=== PATIENT | female | born 1965 | race Caucasian/White ===

== ENCOUNTER 2019-02-17 16:19 | Inpatient (IN) | payer MEDICAID ==
[2019-02-17] MEDS ORDERED: Sodium Chloride 0.9% 10 ML Syringe FLUSH PRN (17:57)
[2019-02-17] MEDS ORDERED: Sodium Chloride 0.9% 10 ML SDV IV PRN (17:57)
[2019-02-17] MEDS ORDERED: Ondansetron 4 MG Tab.DIS PO PRN (17:57)
[2019-02-17] MEDS ORDERED: Sodium Chloride 0.9% 2.5 ML Syringe FLUSH PRN (17:57)
[2019-02-17] MEDS ORDERED: Temazepam 15 MG Cap PO PRN (17:57)
[2019-02-17] MEDS ORDERED: Docusate Sodium 100 MG Cap PO PRN (17:57)
--- NOTE | 2019-02-17 18:04 | PCM.HP ---
H&P History of Present Illness - General Date of Service: 02/17/19 Admit Problem/Dx: Admission Diagnosis/Problem Admission Diagnosis/Problem Pneumonia multilobular Source of Information: Patient, Family History Limitations: Reports: No Limitations - History of Present Illness Initial Comments - Free Text/Narative: The patient is a 53-year-old lady who was directly admitted from her primary care physician's office secondary to pneumonia. The patient's pneumonia is complicated by having myelodysplastic syndrome and on lenalidomide. The patient reports that she has had fever and chills associated with this. The patient says that she has been having a cough and has had some blood streaking along with greenish colored sputum. Patient has been trying [id number] medications without relief. The patient has denied any chest pain. She has had back pain. The patient does not have any radiation of her pain. She has no specific aggravating or relieving factors. The patient does have a history of family members at home sick. No recent travel. Onset of Symptoms: Reports: Gradual Duration of Symptoms: Reports: Day(s): Location: Reports: Chest Quality: Reports: Ache Improves with: Reports: Rest Worsens with: Reports: Breathing, Movement Context: Reports: Sick Contact. Denies: Trauma, Travel Associated Symptoms: Reports: Fever/Chills Headache Pain Score (Numeric/FACES): 8 - Related Data Allergies/Adverse Reactions: Allergies Allergy/AdvReac Type Severity Reaction Status Date / Time No Known Allergies Allergy Verified 02/17/19 17:42 Past Medical History HEENT History: Reports: None Cardiovascular History: Reports: None Respiratory History: Reports: None Gastrointestinal History: Reports: None Genitourinary History: Reports: None [employer] WORK[employer] History: Reports: , Other (See Below) Other OB/BYN History: Hx of Uterus Ca, Hysterectomy Musculoskeletal History: Reports: None Neurological History: Reports: Migraines Psychiatric History: Reports: Depression Endocrine/Metabolic History: Reports: None Other Hematologic History: Myelodysplastic Syndrome Immunologic History: Reports: None Oncologic (Cancer) History: Reports: Uterine, Other (See Below) ( Myelodysplastic syndrome) Dermatologic History: Reports: None - Infectious Disease History Infectious Disease History: Reports: Chicken Pox, Measles, Mumps - Past Surgical History HEENT Surgical History: Reports: Oral Surgery Other HEENT Surgeries/Procedures: wears upper & lower dentures Other GI Surgeries/Procedures: Hx of Gastric Bypass Other Oncologic Surgeries/Procedures: Hysterectomy Social & Family History - Family History Family Medical History: Noncontributory - Tobacco Use Smoking Status *Q: Never Smoker Second Hand Smoke Exposure: No - Caffeine Use Caffeine Use: Reports: Soda, Tea - Recreational Drug Use Recreational Drug Use: No - Living Situation & Occupation Living situation: Reports: Single, with Family Occupation: Unemployed H&P Review of Systems - Review of Systems: Review Of Systems: See Below General: Reports: Fever, Chills, Weakness HEENT: Reports: No Symptoms Pulmonary: Reports: Shortness of Breath, Wheezing, Cough, Sputum Cardiovascular: Reports: No Symptoms Gastrointestinal: Reports: Nausea Genitourinary: Reports: No Symptoms Musculoskeletal: Reports: Back Pain Skin: Reports: No Symptoms Psychiatric: Reports: No Symptoms Neurological: Reports: No Symptoms Hematologic/Lymphatic: Reports: No Symptoms Immunologic: Reports: No Symptoms Exam - Exam Exam: See Below - Vital Signs Vital Signs: Last Vital Signs Temp 36.8 C 02/17/19 16:50 Pulse 100 02/17/19 16:50 Resp 18 02/17/19 16:50 BP 129/73 02/17/19 16:50 Pulse Ox 94 L 02/17/19 16:50 Weight: 92.533 kg - Exam Quality Assessment: No: Supplemental Oxygen General: Alert, Oriented, Cooperative HEENT: Conjunctiva Clear, EACs Clear, EOMI, Hearing Intact, Mucosa Moist & [place] , Nares Patent, PERRLA Neck: Supple, Trachea Midline. No: Carotid Bruit Lungs: Decreased Breath Sounds, Crackles, Rales Cardiovascular: Regular Rate, Regular Rhythm GI/Abdominal Exam: Normal Bowel Sounds, Soft, Non-Tender, No Organomegaly, No Distention (Female) Exam: Deferred Rectal (Female) Exam: Deferred Back Exam: Normal Inspection, Full Range of Motion, NT Extremities: Normal Inspection, Normal Range of Motion, Non-Tender, No Pedal Edema Skin: Warm, Dry, Intact Neurological: Cranial Nerves Intact Neuro Extensive - Mental Status: Alert, Oriented x3 Neuro Extensive - Motor, Sensory, Reflexes: CN II-XII Intact, Normal Gait Psychiatric: Alert, Normal Affect, Normal Mood - Patient Data Result Diagrams: 02/18/19 05:07 02/18/19 05:07 - Problem List (1) Pneumonia SNOMED Code(s): 068384116 ICD Code: J18.9 - PNEUMONIA, UNSPECIFIED ORGANISM Status: Acute Priority : High Current Visit: Yes Qualifiers: Pneumonia type: due to unspecified organism Laterality: bilateral Lung location: unspecified part of lung Qualified Code(s): J18.9 - Pneumonia, unspecified organism (2) Hemoptysis SNOMED Code(s): 84806026 ICD Code: R04.2 - HEMOPTYSIS Status: Acute Priority: High Current Visit : Yes (3) Myelodysplastic disease, not classified SNOMED Code(s): 156813614 ICD Code: C94.6 - MYELODYSPLASTIC DISEASE, NOT CLASSIFIED Status: Chronic Priority: High Current Visit: Yes (4) MGUS (monoclonal gammopathy of unknown significance) SNOMED Code(s): 333644820 ICD Code: D47.2 - MONOCLONAL GAMMOPATHY Status: Chronic Priority: High Current Visit: Yes (5) Obesity (BMI 30.0-34.9) SNOMED Code(s): 877347611017755 ICD Code: E66.9 - OBESITY, UNSPECIFIED Status: Chronic Priority: Medium Current Visit: Yes Problem List Initiated/Reviewed/Updated: Yes Orders Last 24hrs: Active Orders 24 hr Category Date Time Status Patient Status [ADT] Routine ADT 02/17/19 17:57 Ordered Oxygen Therapy [RC] PRN Care 02/17/19 17:57 Ordered Up ad Candy [RC] ASDIRECTED Care 02/17/19 17:57 Ordered VTE/DVT Education [RC] PER UNIT ROUTINE Care 02/17/19 17:57 Ordered Vital Signs [RC] Q4H Care 02/17/19 17:57 Ordered Regular Diet [DIET] Diet 02/17/19 Breakfast Ordered Chest 1V Frontal [CR] AM Exams 02/18/19 05:11 Ordered CBC WITH AUTO DIFF [HEME] AM Lab 02/18/19 05:11 Ordered COMPREHENSIVE METABOLIC PN,CMP [CHEM] AM Lab 02/18/19 05:11 Ordered CULTURE SPUTUM + SMEAR [RM] Stat Lab 02/17/19 17:57 Ordered Acetaminophen [Tylenol] Med 02/17/19 17:57 Ordered 650 mg PO Q4H PRN Docusate Sodium [Colace] Med 02/17/19 17:57 Ordered 100 mg PO BID PRN Enoxaparin [Lovenox] Med 02/17/19 18:00 Ordered 30 mg SUBCUT Q24H Meropenem [Merrem] 2 gm Med 02/17/19 18:00 Ordered Sodium Chloride 0.9% [Normal Saline] 100 ml IV Q8H Ondansetron [Zofran ODT] Med 02/17/19 17:57 Ordered 4 mg PO Q6H PRN Sodium Chloride 0.9% [Normal Saline] Med 02/17/19 17:57 Ordered 10 ml IV ASDIRECTED PRN Sodium Chloride 0.9% [Normal Saline] 1,000 ml Med 02/17/19 18:00 Ordered IV ASDIRECTED Sodium Chloride 0.9% [Saline Flush] Med 02/17/19 17:57 Ordered 10 ml FLUSH ASDIRECTED PRN Sodium Chloride 0.9% [Saline Flush] Med 02/17/19 17:57 Ordered 2.5 ml FLUSH ASDIRECTED PRN Temazepam [Restoril] Med 02/17/19 17:57 Ordered 15 mg PO BEDTIME PRN oxyCODONE Med 02/17/19 17:57 Ordered 5 mg PO Q4H PRN Peripheral IV Insertion Adult [OM.PC] Routine Oth 02/17/19 17:57 Ordered Resuscitation Status Routine Resus Stat 02/17/19 17:57 Ordered Medication Orders Acetaminophen (Tylenol) 650 mg PO Q4H PRN PRN Reason: Pain (Mild 1-3)/fever Docusate Sodium (Colace) 100 mg PO BID PRN PRN Reason: Constipation Enoxaparin Sodium (Lovenox) 30 mg SUBCUT Q24H [facility] Meropenem 2 gm/ Sodium (Chloride) 100 mls @ 100 mls/hr IV Q8H [facility] Sodium Chloride (Normal Saline) 1,000 mls @ 100 mls/hr IV ASDIRECTED [facility] Ondansetron HCl (Zofran Odt) 4 mg PO Q6H PRN PRN Reason: nausea, able to take PO Oxycodone HCl (Oxycodone) 5 mg PO Q4H PRN PRN Reason: Pain (moderate 4-6) Sodium Chloride (Saline Flush) 10 ml FLUSH ASDIRECTED PRN PRN Reason: Keep Vein Open Sodium Chloride (Saline Flush) 2.5 ml FLUSH ASDIRECTED PRN PRN Reason: Keep Vein Open Sodium Chloride (Normal Saline) 10 ml IV ASDIRECTED PRN PRN Reason: IV Use Temazepam (Restoril) 15 mg PO BEDTIME PRN PRN Reason: Sleep Assessment/Plan Comment:: The patient is a 53-year-old lady who had been admitted as an inpatient secondary to the severity of her pneumonia and her immunocompromise status. The patient has myelodysplastic dysplastic syndrome along with MGUS and she is under medications for this. The patient says that the lenalidomide hasn't been used in several weeks and she is following with our local cancer [facility]. The patient will require close monitoring with vital signs every 4 hours. The patient will also have IV antibiotics started and she has been placed on meropenem 2 g every 8 hours. IV fluids of normal saline at 125 mL per hour have also been started. Antibiotics will be descalated after sputum cultures and sensitivities are obtained. Patient has had a mild hemoptysis that I think is related directly to her pneumonia and she'll be kept on DVT prophylaxis with the use of Lovenox at 30 mg subcutaneous daily secondary to her decrease in EGFR. The patient has been encouraged to ambulate. A repeat chest x-ray has been ordered. Laboratory studies have been reordered for the patient. The patient will also have a regular diet as tolerated. Discharge possible in 2-3 days.
[2019-02-17] MEDS: oxyCODONE 5 MG Tab PO PRN (18:41)
[2019-02-17] MEDS: Sodium Chloride 0.9% 1,000 ML IV SCH (18:42)
[2019-02-17] MEDS: Enoxaparin 30 MG/0.3 ML Syringe SUBCUT SCH (18:45)
[2019-02-17] MEDS: Meropenem 2 GM in Sodium Chloride 0.9% 100 ML IV SCH (19:42)
[2019-02-18] MEDS: Sodium Chloride 0.9% 1,000 ML IV SCH (03:40)
[2019-02-18] MEDS: Meropenem 2 GM in Sodium Chloride 0.9% 100 ML IV SCH ×3 (03:40→18:11)
--- NOTE | 2019-02-18 07:18 | PCM.PN ---
- General Info Date of Service: 02/18/19 Admission Dx/Problem (Free Text): Admission Diagnosis/Problem Admission Diagnosis/Problem Pneumonia multilobular Subjective Update: The patient is a 53-year-old lady who was admitted directly from her primary care physician with pneumonia. The patient was aggressively started on IV fluids and antibiotics secondary to her myelodysplastic syndrome. The patient is improving today. She has not been requiring oxygen. She has denied any fever or chills. Overall, the patient says that she is doing somewhat better. No episodes of hemoptysis. Functional Status: Reports: Pain Controlled - Review of Systems General: Reports: No Symptoms HEENT: Reports: No Symptoms Pulmonary: Reports: Shortness of Breath, Cough. Denies: Sputum, Hemoptysis Cardiovascular: Reports: No Symptoms Gastrointestinal: Reports: No Symptoms Genitourinary: Reports: No Symptoms Musculoskeletal: Reports: No Symptoms Skin: Reports: No Symptoms Neurological: Reports: No Symptoms Psychiatric: Reports: No Symptoms - Patient Data Vitals - Most Recent: Last Vital Signs Temp 36.7 C 02/18/19 03:41 Pulse 76 02/18/19 03:41 Resp 15 02/18/19 03:41 BP 117/69 02/18/19 03:41 Pulse Ox 94 L 02/18/19 03:41 Weight - Most Recent: 92.533 kg I&O - Last 24 Hours: Intake & Output 02/17/19 02/18/19 02/18/19 22:59 06:59 14:59 Intake Total 200 Output Total 700 Balance -500 Lab Results Last 24 Hours: Laboratory Results - last 24 hr 02/18/19 02/18/19 02/18/19 Range/Units 05:07 05:07 05:07 WBC 7.82 (4.0-11.0) K/uL RBC 2.61 L (4.30-5.90) M/uL Hgb 8.7 L (12.0-16.0) g/dL Hct 26.2 L (36.0-46.0) % MCV 100.4 H (80.0-98.0) fL MCH 33.3 H (27.0-32.0) pg MCHC 33.2 (31.0-37.0) g/dL RDW Std Deviation 52.4 (28.0-62.0) fl RDW Coeff of Garrick 15 (11.0-15.0) % Plt Count 426 H (150-400) K/uL MPV 10.00 (7.40-12.00) fL Add Manual Diff YES Neutrophils % (Manual) 58 (48.0-80.0) % Band Neutrophils % 6 % Lymphocytes % (Manual) 32 (16.0-40.0) % Monocytes % (Manual) 7 (0.0-15.0) % Eosinophils % (Manual) 1 (0.0-7.0) % Basophils % (Manual) 1 (0.0-1.5) % Absolute Seg Neuts 4.5 (1.4-5.7) Band Neutrophils # 0.5 Lymphocytes # (Manual) 2.5 H (0.6-2.4) Monocytes # (Manual) 0.5 (0.0-0.8) Eosinophils # (Manual) 0.1 (0.0-0.7) Basophils # (Manual) 0.1 (0.0-0.1) Sodium 142 (136-145) mmol/L Potassium 2.7 L (3.5-5.1) mmol/L Chloride 105 (98-107) mmol/L Carbon Dioxide 28.4 (21.0-32.0) mmol/L BUN 5 L (7.0-18.0) mg/dL Creatinine 1.1 H (0.6-1.0) mg/dL Est Cr Clr Drug Dosing 58.29 mL/min Estimated GFR (MDRD) 51.6 ml/min Glucose 94 (74-106) mg/dL Calcium 7.8 L (8.5-10.1) mg/dL Magnesium 2.0 (1.8-2.4) mg/dL Total Bilirubin 0.3 (0.2-1.0) mg/dL AST 9 L (15-37) IU/L ALT 10 L (14-63) IU/L Alkaline Phosphatase 121 H (46-116) U/L Total Protein 6.3 L (6.4-8.2) g/dL Albumin 1.7 L (3.4-5.0) g/dL Globulin 4.6 H (2.6-4.0) g/dL Albumin/Globulin Ratio 0.4 L (0.9-1.6) Med Orders - Current: Current Medications Acetaminophen (Tylenol) 650 mg PO Q4H PRN PRN Reason: Pain (Mild 1-3)/fever Docusate Sodium (Colace) 100 mg PO BID PRN PRN Reason: Constipation Enoxaparin Sodium (Lovenox) 30 mg SUBCUT Q24H [facility] Last Admin: 02/17/19 18:45 Dose: 30 mg Meropenem 2 gm/ Sodium (Chloride) 100 mls @ 100 mls/hr IV Q8H [facility] Last Admin: 02/18/19 03:40 Dose: 100 mls/hr Sodium Chloride (Normal Saline) 1,000 mls @ 100 mls/hr IV ASDIRECTED [facility] Last Admin: 02/18/19 03:40 Dose: 100 mls/hr Potassium Chloride/Dextrose/Sod Cl (D5 1/2 Ns W/ 40 Meq/L Kcl) 1,000 mls @ 100 mls/hr IV ASDIRECTED [facility] Ondansetron HCl (Zofran Odt) 4 mg PO Q6H PRN PRN Reason: nausea, able to take PO Oxycodone HCl (Oxycodone) 5 mg PO Q4H PRN PRN Reason: Pain (moderate 4-6) Last Admin: 02/17/19 18:41 Dose: 5 mg Sodium Chloride (Saline Flush) 10 ml FLUSH ASDIRECTED PRN PRN Reason: Keep Vein Open Sodium Chloride (Saline Flush) 2.5 ml FLUSH ASDIRECTED PRN PRN Reason: Keep Vein Open Sodium Chloride (Normal Saline) 10 ml IV ASDIRECTED PRN PRN Reason: IV Use Temazepam (Restoril) 15 mg PO BEDTIME PRN PRN Reason: Sleep - Exam Quality Assessment: No: Supplemental Oxygen General: Alert, Oriented, Cooperative, No Acute Distress HEENT: Pupils Equal, Pupils Reactive, EOMI, Mucous Membr. Moist/[place] Neck: Supple, Trachea Midline, No Thyromegaly Lungs: Decreased Breath Sounds, Crackles (Widely scattered) Cardiovascular: Regular Rate, Regular Rhythm GI/Abdominal Exam: Normal Bowel Sounds, Soft, No Distention. No: Guarding, Rigid, Rebound (Female) Exam: Deferred Back Exam: Normal Inspection, Full Range of Motion Extremities: Normal Inspection, No Pedal Edema Skin: Warm, Dry, Intact Neurological: No New Focal Deficit Psy/Mental Status: Alert, Normal Affect, Normal Mood - Problem List & Annotations (1) Pneumonia SNOMED Code(s): 366683606 Code(s): J18.9 - PNEUMONIA, UNSPECIFIED ORGANISM Status: Acute Priority: High Current Visit: Yes Qualifiers: Pneumonia type: due to unspecified organism Laterality: bilateral Lung location: unspecified part of lung Qualified Code(s): J18.9 - Pneumonia, unspecified organism (2) Hemoptysis SNOMED Code(s): 07954204 Code(s): R04.2 - HEMOPTYSIS Status: Resolved Priority: High Current Visit: Yes (3) Myelodysplastic disease, not classified SNOMED Code(s): 906193316 Code(s): C94.6 - MYELODYSPLASTIC DISEASE, NOT CLASSIFIED Status: Chronic Priority: High Current Visit: Yes (4) MGUS (monoclonal gammopathy of unknown significance) SNOMED Code(s): 988552526 Code(s): D47.2 - MONOCLONAL GAMMOPATHY Status: Chronic Priority: High Current Visit: Yes (5) Obesity (BMI 30.0-34.9) SNOMED Code(s): 461906633660851 Code(s): E66.9 - OBESITY, UNSPECIFIED Status: Chronic Priority: Medium Current Visit: Yes - Problem List Review Problem List Initiated/Reviewed/Updated: Yes - My Orders Last 24 Hours: My Active Orders 02/17/19 17:57 Patient Status [ADT] Routine Oxygen Therapy [RC] PRN Up ad Candy [RC] ASDIRECTED VTE/DVT Education [RC] PER UNIT ROUTINE Vital Signs [RC] Q4H CULTURE SPUTUM + SMEAR [RM] Stat Acetaminophen [Tylenol] 650 mg PO Q4H PRN Docusate Sodium [Colace] 100 mg PO BID PRN Ondansetron [Zofran ODT] 4 mg PO Q6H PRN Sodium Chloride 0.9% [Normal Saline] 10 ml IV ASDIRECTED PRN Sodium Chloride 0.9% [Saline Flush] 10 ml FLUSH ASDIRECTED PRN Sodium Chloride 0.9% [Saline Flush] 2.5 ml FLUSH ASDIRECTED PRN Temazepam [Restoril] 15 mg PO BEDTIME PRN oxyCODONE 5 mg PO Q4H PRN Peripheral IV Insertion Adult [OM.PC] Routine Resuscitation Status Routine 02/17/19 18:00 Enoxaparin [Lovenox] 30 mg SUBCUT Q24H Sodium Chloride 0.9% [Normal Saline] 1,000 ml IV ASDIRECTED 02/17/19 19:00 Meropenem [Merrem] 2 gm Sodium Chloride 0.9% [Normal Saline] 100 ml IV Q8H 02/17/19 Breakfast Regular Diet [DIET] 02/18/19 05:11 Chest 1V Frontal [CR] AM 02/18/19 07:00 D5 1/2 NS w/ 40 mEq/L KCl 1,000 ml IV ASDIRECTED - Plan Plan:: The patient is a 53-year-old lady who had been admitted as an inpatient secondary to the severity of her pneumonia and her immunocompromise status. The patient has myelodysplastic dysplastic syndrome along with MGUS and she is under medications for this. The patient says that the lenalidomide hasn't been used in several weeks and she is following with our local cancer Center. The patient will require close monitoring with vital signs every 4 hours. The patient will also have IV antibiotics started and she has been placed on meropenem 2 g every 8 hours. IV fluids of normal saline at 125 mL per hour have also been started. Antibiotics will be descalated after sputum cultures and sensitivities are obtained. Patient has had a mild hemoptysis that I think is related directly to her pneumonia and she'll be kept on DVT prophylaxis with the use of Lovenox at 30 mg subcutaneous daily secondary to her decrease in EGFR. The patient has been encouraged to ambulate. A repeat chest x-ray has been ordered. Laboratory studies have been reordered for the patient. The patient will also have a regular diet as tolerated. Discharge possible in 2-3 days. The patient is a 53-year-old lady who is doing much better today after IV fluids and antibiotics. Because the patient is immune compromised that she will be kept on meropenem 2 g IV every 8 hours. The patient also be kept on IV normal saline 125 mL per hour. Culture and sensitivities and sputum are still pending. Repeat laboratory testings have been ordered secondary to the patient' s depressed EGFR. The patient also has been encouraged to ambulate. The patient will also be kept on her regular diet as tolerated. She should be appropriate for discharge in 1-2 days.
[2019-02-18] MEDS: D5 1/2 NS w/ 40 mEq/L KCl 1,000 ML IV SCH ×2 (08:29→22:40)
--- NOTE | 2019-02-18 09:35 | CR ---
INDICATION: Followup pneumonia. TECHNIQUE: Single view of the chest. COMPARISON: 02/17/2019. FINDINGS: The heart and mediastinum are unchanged. Shallow inspiration. There are patchy infiltrates in the right upper lobe and left lung base which have not changed significantly from 1 day previously. No significant pleural effusions. No pneumothorax. IMPRESSION: Patchy infiltrates in the right upper lobe and left lung base unchanged from 1 day previously. Dictated by Jewel Benavides MD @ Feb 18 2019 9:31AM Signed by Dr. Jewel Benavides @ Feb 18 2019 9:33AM
[2019-02-18] MEDS: oxyCODONE 5 MG Tab PO PRN ×2 (10:55→15:51)
[2019-02-18] MEDS ORDERED: Cyclobenzaprine 10 MG Tab PO PRN (16:52)
[2019-02-18] MEDS: Enoxaparin 30 MG/0.3 ML Syringe SUBCUT SCH (18:09)
[2019-02-19] MEDS: Meropenem 2 GM in Sodium Chloride 0.9% 100 ML IV SCH ×3 (03:30→18:16)
[2019-02-19 06:24] LABS: CHLORIDE,CL 111 mmol/L (98-107); SODIUM,NA 145 mmol/L (136-145)
[2019-02-19] MEDS: D5 1/2 NS w/ 40 mEq/L KCl 1,000 ML IV SCH (09:13)
[2019-02-19] MEDS: Acetaminophen 325 MG Tab PO PRN ×2 (09:28→14:09)
[2019-02-19] MEDS ORDERED: Sodium Chloride 0.9% 1,000 ML IV SCH (10:45)
--- NOTE | 2019-02-19 12:12 | PCM.PN ---
- General Info Date of Service: 02/19/19 Admission Dx/Problem (Free Text): Admission Diagnosis/Problem Admission Diagnosis/Problem Pneumonia multilobular Subjective Update: The patient is a 53-year-old lady who had been admitted directly to the hospital from her primary care physician's office. This was secondary to multilobular pneumonia. Her course of treatment is also complicated by myelodysplastic syndrome. The patient has been doing well. The patient has been ambulating. She has not been on oxygen. She has denied any fever or chills. She has been tolerating diet. Functional Status: Reports: Pain Controlled - Review of Systems General: Reports: No Symptoms HEENT: Reports: No Symptoms Pulmonary: Reports: No Symptoms Cardiovascular: Reports: No Symptoms Gastrointestinal: Reports: No Symptoms Genitourinary: Reports: No Symptoms Musculoskeletal: Reports: No Symptoms Skin: Reports: No Symptoms Neurological: Reports: No Symptoms Psychiatric: Reports: No Symptoms - Patient Data Vitals - Most Recent: Last Vital Signs Temp 36.3 C 02/19/19 11:41 Pulse 92 02/19/19 11:41 Resp 20 02/19/19 11:41 BP 136/68 02/19/19 11:41 Pulse Ox 95 02/19/19 11:41 Weight - Most Recent: 92.533 kg I&O - Last 24 Hours: Intake & Output 02/18/19 02/19/19 02/19/19 22:59 06:59 14:59 Intake Total 2153 1485 Output Total 1700 600 Balance 453 885 Lab Results Last 24 Hours: Laboratory Results - last 24 hr 02/19/19 02/19/19 Range/Units 04:50 04:50 WBC 5.59 (4.0-11.0) K/uL RBC 2.58 L (4.30-5.90) M/uL Hgb 8.6 L (12.0-16.0) g/dL Hct 26.0 L (36.0-46.0) % MCV 100.8 H (80.0-98.0) fL MCH 33.3 H (27.0-32.0) pg MCHC 33.1 (31.0-37.0) g/dL RDW Std Deviation 53.6 (28.0-62.0) fl RDW Coeff of Garrick 15 (11.0-15.0) % Plt Count 380 (150-400) K/uL MPV 10.10 (7.40-12.00) fL Add Manual Diff YES Neutrophils % (Manual) 55 (48.0-80.0) % Band Neutrophils % 2 % Lymphocytes % (Manual) 38 (16.0-40.0) % Monocytes % (Manual) 5 (0.0-15.0) % Absolute Seg Neuts 3.1 (1.4-5.7) Band Neutrophils # 0.1 Lymphocytes # (Manual) 2.1 (0.6-2.4) Monocytes # (Manual) 0.3 (0.0-0.8) Sodium 145 (136-145) mmol/L Potassium 3.6 (3.5-5.1) mmol/L Chloride 111 H (98-107) mmol/L Carbon Dioxide 29.6 (21.0-32.0) mmol/L BUN 4 L (7.0-18.0) mg/dL Creatinine 0.9 (0.6-1.0) mg/dL Est Cr Clr Drug Dosing 71.25 mL/min Estimated GFR (MDRD) > 60.0 ml/min Glucose 100 (74-106) mg/dL Calcium 8.0 L (8.5-10.1) mg/dL Jaden Results Last 24 Hours: Microbiology 02/17/19 07:25 Gram Stain - Preliminary Sputum - Expectorated Med Orders - Current: Current Medications Acetaminophen (Tylenol) 650 mg PO Q4H PRN PRN Reason: Pain (Mild 1-3)/fever Last Admin: 02/19/19 09:28 Dose: 650 mg Cyclobenzaprine HCl (Flexeril) 10 mg PO TID PRN PRN Reason: Spasms Docusate Sodium (Colace) 100 mg PO BID PRN PRN Reason: Constipation Enoxaparin Sodium (Lovenox) 30 mg SUBCUT Q24H [facility] Last Admin: 02/18/19 18:09 Dose: 30 mg Fluoxetine HCl (Prozac) 40 mg PO DAILY [facility] Last Admin: 02/19/19 09:06 Dose: 40 mg Meropenem 2 gm/ Sodium (Chloride) 100 mls @ 100 mls/hr IV Q8H [facility] Last Admin: 02/19/19 10:58 Dose: 100 mls/hr Sodium Chloride (Normal Saline) 1,000 mls @ 125 mls/hr IV ASDIRECTED [facility] Last Admin: 02/19/19 10:41 Dose: 125 mls/hr Ondansetron HCl (Zofran Odt) 4 mg PO Q6H PRN PRN Reason: nausea, able to take PO Oxycodone HCl (Oxycodone) 5 mg PO Q4H PRN PRN Reason: Pain (moderate 4-6) Last Admin: 02/18/19 15:51 Dose: 5 mg Sodium Chloride (Saline Flush) 10 ml FLUSH ASDIRECTED PRN PRN Reason: Keep Vein Open Sodium Chloride (Saline Flush) 2.5 ml FLUSH ASDIRECTED PRN PRN Reason: Keep Vein Open Sodium Chloride (Normal Saline) 10 ml IV ASDIRECTED PRN PRN Reason: IV Use Temazepam (Restoril) 15 mg PO BEDTIME PRN PRN Reason: Sleep Discontinued Medications Sodium Chloride (Normal Saline) 1,000 mls @ 100 mls/hr IV ASDIRECTED [facility] Last Admin: 02/18/19 03:40 Dose: 100 mls/hr Potassium Chloride/Dextrose/Sod Cl (D5 1/2 Ns W/ 40 Meq/L Kcl) 1,000 mls @ 100 mls/hr IV ASDIRECTED [facility] Last Admin: 02/19/19 09:13 Dose: 100 mls/hr - Exam Quality Assessment: No: Supplemental Oxygen General: Alert, Oriented, Cooperative, No Acute Distress HEENT: Pupils Equal, Pupils Reactive, EOMI, Mucous Membr. Moist/[place] Neck: Supple, Trachea Midline Lungs: Normal Respiratory Effort, Rales (Scattered) Cardiovascular: Regular Rate, Regular Rhythm GI/Abdominal Exam: Normal Bowel Sounds, Soft, Non-Tender, No Distention (Female) Exam: Deferred Back Exam: Normal Inspection, Full Range of Motion Extremities: Normal Inspection, Normal Range of Motion, No Pedal Edema Skin: Warm, Dry, Intact Neurological: No New Focal Deficit Psy/Mental Status: Alert, Normal Affect, Normal Mood - Problem List & Annotations (1) Pneumonia SNOMED Code(s): 796397504 Code(s): J18.9 - PNEUMONIA, UNSPECIFIED ORGANISM Status: Acute Priority: High Current Visit: Yes Qualifiers: Pneumonia type: due to unspecified organism Laterality: bilateral Lung location: unspecified part of lung Qualified Code(s): J18.9 - Pneumonia, unspecified organism (2) Hemoptysis SNOMED Code(s): 93129809 Code(s): R04.2 - HEMOPTYSIS Status: Resolved Priority: High Current Visit: Yes (3) Myelodysplastic disease, not classified SNOMED Code(s): 805804112 Code(s): C94.6 - MYELODYSPLASTIC DISEASE, NOT CLASSIFIED Status: Chronic Priority: High Current Visit: Yes (4) MGUS (monoclonal gammopathy of unknown significance) SNOMED Code(s): 014757312 Code(s): D47.2 - MONOCLONAL GAMMOPATHY Status: Chronic Priority: High Current Visit: Yes (5) Obesity (BMI 30.0-34.9) SNOMED Code(s): 225813176294132 Code(s): E66.9 - OBESITY, UNSPECIFIED Status: Chronic Priority: Medium Current Visit: Yes - Problem List Review Problem List Initiated/Reviewed/Updated: Yes - My Orders Last 24 Hours: My Active Orders 02/18/19 16:52 Cyclobenzaprine [Flexeril] 10 mg PO TID PRN 02/19/19 04:50 BASIC METABOLIC PANEL,BMP [CHEM] AM CBC WITH AUTO DIFF [HEME] AM 02/19/19 09:00 FLUoxetine [PROzac] 40 mg PO DAILY 02/19/19 10:45 Sodium Chloride 0.9% [Normal Saline] 1,000 ml IV ASDIRECTED - Plan Plan:: The patient is a 53-year-old lady who is doing better today after IV fluids and antibiotics. Due to the patient's immunocompromise status with her myelodysplastic disorder she'll be kept on meropenem 2 g IV every 8 hours. The patient has been encouraged to ambulate. The patient has been tolerating her diet and normal saline IV will be discontinued. Still awaiting results of cultures. The patient will continue to ambulate as tolerated. Patient should be appropriate for discharge tomorrow. The patient will also follow-up with the cancer center for her regular follow-up.
[2019-02-19] MEDS: Enoxaparin 30 MG/0.3 ML Syringe SUBCUT SCH (18:16)
[2019-02-20] MEDS: Meropenem 2 GM in Sodium Chloride 0.9% 100 ML IV SCH ×2 (03:00→10:55)
[2019-02-20] MEDS: oxyCODONE 5 MG Tab PO PRN ×3 (03:03→21:25)
--- NOTE | 2019-02-20 07:51 | PCM.PN ---
- General Info Date of Service: 02/20/19 Admission Dx/Problem (Free Text): Admission Diagnosis/Problem Admission Diagnosis/Problem Pneumonia multilobular Subjective Update: The patient is a 53-year-old lady who was admitted directly from her primary care physician's office on February 17, 2019 out of concern for multilobular pneumonia. The patient also has myelodysplastic disorder. The patient today says that she is feeling somewhat better but not quite ready to go home as of yet. The patient says that she is still having a cough. She has been ambulating. The patient also has been off of oxygen. She has been tolerating diet. Functional Status: Reports: Pain Controlled - Review of Systems General: Reports: Fatigue, Malaise HEENT: Reports: No Symptoms Pulmonary: Reports: Shortness of Breath, Cough. Denies: Sputum Cardiovascular: Reports: No Symptoms Gastrointestinal: Reports: No Symptoms Genitourinary: Reports: No Symptoms Musculoskeletal: Reports: No Symptoms Skin: Reports: No Symptoms Neurological: Reports: No Symptoms Psychiatric: Reports: No Symptoms - Patient Data Vitals - Most Recent: Last Vital Signs Temp 36.6 C 02/20/19 04:00 Pulse 77 02/20/19 04:00 Resp 18 02/20/19 04:00 BP 122/76 02/20/19 04:00 Pulse Ox 93 L 02/20/19 04:00 Weight - Most Recent: 92.533 kg I&O - Last 24 Hours: Intake & Output 02/19/19 02/20/19 02/20/19 22:59 06:59 14:59 Intake Total 1821 700 Output Total 1000 950 Balance 821 -250 Jaden Results Last 24 Hours: Microbiology 02/19/19 19:25 Clostridium difficile Toxin A & B - Final Stool / Feces Negative for C.Diff Toxin/AG Med Orders - Current: Current Medications Acetaminophen (Tylenol) 650 mg PO Q4H PRN PRN Reason: Pain (Mild 1-3)/fever Last Admin: 02/19/19 14:09 Dose: 650 mg Cyclobenzaprine HCl (Flexeril) 10 mg PO TID PRN PRN Reason: Spasms Docusate Sodium (Colace) 100 mg PO BID PRN PRN Reason: Constipation Enoxaparin Sodium (Lovenox) 30 mg SUBCUT Q24H [facility] Last Admin: 02/19/19 18:16 Dose: 30 mg Fluoxetine HCl (Prozac) 40 mg PO DAILY [facility] Last Admin: 02/19/19 09:06 Dose: 40 mg Meropenem 2 gm/ Sodium (Chloride) 100 mls @ 100 mls/hr IV Q8H [facility] Last Admin: 02/20/19 03:00 Dose: 100 mls/hr Ondansetron HCl (Zofran Odt) 4 mg PO Q6H PRN PRN Reason: nausea, able to take PO Oxycodone HCl (Oxycodone) 5 mg PO Q4H PRN PRN Reason: Pain (moderate 4-6) Last Admin: 02/20/19 03:03 Dose: 5 mg Sodium Chloride (Saline Flush) 10 ml FLUSH ASDIRECTED PRN PRN Reason: Keep Vein Open Sodium Chloride (Saline Flush) 2.5 ml FLUSH ASDIRECTED PRN PRN Reason: Keep Vein Open Sodium Chloride (Normal Saline) 10 ml IV ASDIRECTED PRN PRN Reason: IV Use Temazepam (Restoril) 15 mg PO BEDTIME PRN PRN Reason: Sleep Discontinued Medications Sodium Chloride (Normal Saline) 1,000 mls @ 100 mls/hr IV ASDIRECTED [facility] Last Admin: 02/18/19 03:40 Dose: 100 mls/hr Potassium Chloride/Dextrose/Sod Cl (D5 1/2 Ns W/ 40 Meq/L Kcl) 1,000 mls @ 100 mls/hr IV ASDIRECTED [facility] Last Admin: 02/19/19 09:13 Dose: 100 mls/hr Sodium Chloride (Normal Saline) 1,000 mls @ 125 mls/hr IV ASDIRECTED [facility] Last Admin: 02/19/19 10:41 Dose: 125 mls/hr - Exam Quality Assessment: No: Supplemental Oxygen General: Alert, Oriented, Cooperative, No Acute Distress HEENT: Pupils Equal, Pupils Reactive Neck: Supple, Trachea Midline Lungs: Decreased Breath Sounds, Crackles, Rales Cardiovascular: Regular Rate, Regular Rhythm GI/Abdominal Exam: Normal Bowel Sounds, Soft, Non-Tender, No Distention (Female) Exam: Deferred Back Exam: Normal Inspection, Full Range of Motion Extremities: Normal Inspection, No Pedal Edema Skin: Warm, Dry, Intact Neurological: No New Focal Deficit Psy/Mental Status: Alert, Normal Affect, Normal Mood - Problem List & Annotations (1) Pneumonia SNOMED Code(s): 021081386 Code(s): J18.9 - PNEUMONIA, UNSPECIFIED ORGANISM Status: Acute Priority: High Current Visit: Yes Qualifiers: Pneumonia type: due to unspecified organism Laterality: bilateral Lung location: unspecified part of lung Qualified Code(s): J18.9 - Pneumonia, unspecified organism (2) Hemoptysis SNOMED Code(s): 30298962 Code(s): R04.2 - HEMOPTYSIS Status: Resolved Priority: High Current Visit: Yes (3) Myelodysplastic disease, not classified SNOMED Code(s): 795679548 Code(s): C94.6 - MYELODYSPLASTIC DISEASE, NOT CLASSIFIED Status: Chronic Priority: High Current Visit: Yes (4) MGUS (monoclonal gammopathy of unknown significance) SNOMED Code(s): 918391093 Code(s): D47.2 - MONOCLONAL GAMMOPATHY Status: Chronic Priority: High Current Visit: Yes (5) Obesity (BMI 30.0-34.9) SNOMED Code(s): 680710332461944 Code(s): E66.9 - OBESITY, UNSPECIFIED Status: Chronic Priority: Medium Current Visit: Yes (6) Diarrhea SNOMED Code(s): 87295065 Code(s): R19.7 - DIARRHEA, UNSPECIFIED Status: Acute Priority: High Current Visit: Yes Qualifiers: Diarrhea type: functional diarrhea Qualified Code(s): K59.1 - Functional diarrhea Annotation/Comment:: C. Diff negative - Problem List Review Problem List Initiated/Reviewed/Updated: Yes - My Orders Last 24 Hours: My Active Orders 02/19/19 09:00 FLUoxetine [PROzac] 40 mg PO DAILY 02/19/19 19:07 CDIFF TOX A+B [OP] Routine 02/19/19 19:08 Isolation [COMM] Stat 02/20/19 07:42 CXR [Chest 1V Frontal] [CR] Routine - Plan Plan:: The patient also be kept on her current diet as tolerated. The patient is a 53-year-old lady who is doing somewhat better today. The patient has been ambulating. She also has been eating well. The patient has had her IV saline locked now. The patient will still be kept on meropenem 2 g IV every 8 hours. She is not ready to go home as of yet. Chest x-ray had been taken this morning is was reviewed and showed poor inspiratory effort with right upper lobe pneumonia. Patient also has been recommended to continue to use the incentive spirometer at least 10 times per hour while awake. Still awaiting results of culture. Repeat laboratory studies have been ordered. We'll continue on the DVT prophylaxis with Lovenox.
[2019-02-20] MEDS: Acetaminophen 325 MG Tab PO PRN ×2 (07:58→16:46)
--- NOTE | 2019-02-20 09:23 | CR ---
EXAMINATION: Portable chest radiograph. HISTORY: Pneumonia. FINDINGS: The trachea is midline. The cardiomediastinal silhouette is within normal limits. Persistent right perihilar infiltrate and mild atelectasis and/or infiltrate within the left lung base. Minimal bilateral pleural effusions. No pneumothorax. Osseous structures appear unremarkable. IMPRESSION: 1. Persistent pulmonary infiltrates, not significantly changed.
[2019-02-20] MEDS: cefTRIAXone 2 GM in Premix Bag 1 BAG IV SCH (13:43)
[2019-02-20] MEDS: Enoxaparin 30 MG/0.3 ML Syringe SUBCUT SCH (18:28)
[2019-02-20] MEDS: Loperamide 2 MG Cap PO PRN (18:53)
[2019-02-21 05:41] LABS: CHLORIDE,CL 108 mmol/L (98-107); SODIUM,NA 146 mmol/L (136-145)
--- NOTE | 2019-02-21 10:08 | PCM.DCSUM1 ---
Discharge Summary - Hospital Course HPI Initial Comments: The patient was a direct admit due to multilobular pneumonia. Diagnosis: Stroke: No - Discharge Data Discharge Date: 02/21/19 Discharge Disposition: Home, Self-Care 01 Condition: Good - Discharge Diagnosis/Problem(s) (1) Pneumonia SNOMED Code(s): 924815986 ICD Code: J18.9 - PNEUMONIA, UNSPECIFIED ORGANISM Status: Acute Priority : High Current Visit: Yes Problem Details: Pansensitive group A streptococcus Qualifiers: Pneumonia type: due to unspecified organism Laterality: bilateral Lung location: unspecified part of lung Qualified Code(s): J18.9 - Pneumonia, unspecified organism (2) Hemoptysis SNOMED Code(s): 14791084 ICD Code: R04.2 - HEMOPTYSIS Status: Resolved Priority: High Current Visit: Yes (3) Myelodysplastic disease, not classified SNOMED Code(s): 488126221 ICD Code: C94.6 - MYELODYSPLASTIC DISEASE, NOT CLASSIFIED Status: Chronic Priority: High Current Visit: Yes (4) MGUS (monoclonal gammopathy of unknown significance) SNOMED Code(s): 263179088 ICD Code: D47.2 - MONOCLONAL GAMMOPATHY Status: Chronic Priority: High Current Visit: Yes (5) Obesity (BMI 30.0-34.9) SNOMED Code(s): 139022817554454 ICD Code: E66.9 - OBESITY, UNSPECIFIED Status: Chronic Priority: Medium Current Visit: Yes (6) Diarrhea SNOMED Code(s): 34592707 ICD Code: R19.7 - DIARRHEA, UNSPECIFIED Status: Acute Priority: High Current Visit: Yes Problem Details: C. Diff negative Qualifiers: Diarrhea type: functional diarrhea Qualified Code(s): K59.1 - Functional diarrhea - Patient Summary/Data Hospital Course: The patient is a 53-year-old lady who was admitted directly from her primary care physician's office and this was secondary to multilobular pneumonia. The patient was admitted as an inpatient on February 17, 2019. The patient has myelodysplastic syndrome and she was aggressively treated with antibiotics. The patient also had been trying [id number] medications and this did not help her. She had fever and chills prior to presentation. The patient had been started on meropenem at 2 g IV every 8 hours. Cultures were obtained of her sputum and this grew out group A streptococcus. This was pansensitive. The patient also had a cough which was interfering with her ability to take a deep breath and she had been placed on Phenergan with codeine and this prescription will be continued as an outpatient. Initially the patient did not exhibit any leukocytosis and by day of discharge her white blood cell count was normalized at 4.43 thousand. The patient had remained hemodynamically stable throughout her course of hospitalization and she did not exhibit febrile reaction during hospitalization. The patient also had been aggressively fluid resuscitated as well. The patient also had been ambulating comfortably on day of discharge without the use of oxygen. She had been tolerating her diet. She has been recommended to be discharged with a diet as tolerated. She is also to follow-up with her primary care as well as oncology for her myelodysplastic syndrome. The patient is to have activity as tolerated. She has been discharged on Augmentin 875 mg to take 1 by mouth twice a day. The patient has been hemodynamically stable and she is subsequently discharged from acute hospitalization with the recommendations listed above. - Patient Instructions Diet: Heart Healthy Diet Activity: As Tolerated Notify Provider of: Fever, Increased Pain, Nausea and/or Vomiting - Discharge Plan *PRESCRIPTION DRUG MONITORING PROGRAM REVIEWED*: No *COPY OF PRESCRIPTION DRUG MONITORING REPORT IN PATIENT LORENZO: No Prescriptions/Med Rec: Amoxicillin/Clavulanate K [Augmentin 875-125 MG] 1 tab PO BID #14 tab guaiFENesin/Codeine Phosphate [Codeine-Guaifen 10-100 mg/5 ml] 5 ml PO Q6H PRN # 118 ml PRN Reason: Cough Home Medications: Home Meds Cyclobenzaprine [Flexeril] 10 mg PO TID PRN 02/18/19 [History] FLUoxetine [PROzac] 40 mg PO DAILY 02/18/19 [History] Hydrocodone/Acetaminophen [Hydrocodon-Acetaminophn 10-325] 1 tab PO TID PRN [History] Lenalidomide [Revlimid] 10 mg PO DAILY 02/18/19 [History] traMADol [Ultram] 50 mg PO BID PRN 02/18/19 [History] Amoxicillin/Clavulanate K [Augmentin 875-125 MG] 1 tab PO BID #14 tab 02/21/19 [ Rx] guaiFENesin/Codeine Phosphate [Codeine-Guaifen 10-100 mg/5 ml] 5 ml PO Q6H PRN # 118 ml 02/21/19 [Rx] Patient Handouts: Amoxicillin capsules or tablets, Codeine; Guaifenesin oral solution or syrup, Community-Acquired Pneumonia, Adult Referrals: Ronan De MD [Primary Care Provider] - 02/27/19 9:30 am - Discharge Summary/Plan Comment DC Time >30 min.: Yes - General Info Date of Service: 02/21/19 Admission Dx/Problem (Free Text: Admission Diagnosis/Problem Admission Diagnosis/Problem Pneumonia multilobular Subjective Update: Much better today. The patient says that she feels like she can go home today. Functional Status: Reports: Pain Controlled - Review of Systems General: Reports: No Symptoms HEENT: Reports: No Symptoms Pulmonary: Reports: Cough Cardiovascular: Reports: No Symptoms Gastrointestinal: Reports: No Symptoms Genitourinary: Reports: No Symptoms Musculoskeletal: Reports: No Symptoms Skin: Reports: No Symptoms Neurological: Reports: No Symptoms Psychiatric: Reports: No Symptoms - Patient Data Vitals - Most Recent: Last Vital Signs Temp 36.9 C 02/21/19 07:40 Pulse 70 02/21/19 07:40 Resp 18 02/21/19 07:40 BP 116/63 02/21/19 07:40 Pulse Ox 94 L 02/21/19 07:40 Weight - Most Recent: 92.533 kg I&O - Last 24 hours: Intake & Output 02/20/19 02/21/19 02/21/19 22:59 06:59 14:59 Intake Total 1420 720 Output Total 1530 1100 Balance -110 -380 Lab Results - Last 24 hrs: Laboratory Results - last 24 hr 02/21/19 02/21/19 Range/Units 05:10 05:10 WBC 4.43 (4.0-11.0) K/uL RBC 2.69 L (4.30-5.90) M/uL Hgb 8.5 L (12.0-16.0) g/dL Hct 26.9 L (36.0-46.0) % MCV 100.0 H (80.0-98.0) fL MCH 31.6 (27.0-32.0) pg MCHC 31.6 (31.0-37.0) g/dL RDW Std Deviation 58.7 (28.0-62.0) fl RDW Coeff of Garrick 16 H (11.0-15.0) % Plt Count 336 (150-400) K/uL MPV 10.30 (7.40-12.00) fL Neut % (Auto) 42.7 L (48.0-80.0) % Lymph % (Auto) 45.8 H (16.0-40.0) % [place] % (Auto) 10.4 (0.0-15.0) % Eos % (Auto) 0.9 (0.0-7.0) % Baso % (Auto) 0.2 (0.0-1.5) % Neut # (Auto) 1.9 (1.4-5.7) K/uL Lymph # (Auto) 2.0 (0.6-2.4) K/uL [place] # (Auto) 0.5 (0.0-0.8) K/uL Eos # (Auto) 0.0 (0.0-0.7) K/uL Baso # (Auto) 0.0 (0.0-0.1) K/uL Nucleated RBC % 0.0 /100WBC Nucleated RBCs # 0 K/uL Sodium 146 H (136-145) mmol/L Potassium 3.1 L (3.5-5.1) mmol/L Chloride 108 H (98-107) mmol/L Carbon Dioxide 29.0 (21.0-32.0) mmol/L BUN 5 L (7.0-18.0) mg/dL Creatinine 0.7 (0.6-1.0) mg/dL Est Cr Clr Drug Dosing 91.60 mL/min Estimated GFR (MDRD) > 60.0 ml/min Glucose 89 (74-106) mg/dL Calcium 7.8 L (8.5-10.1) mg/dL [facility] Results - Last 24 hrs: Microbiology 02/17/19 07:25 Gram Stain - Final Sputum - Expectorated Sputum Culture - Final Streptococcus Group A Normal Respiratory Amarilis Yeast Isolated Med Orders - Current: Current Medications Acetaminophen (Tylenol) 650 mg PO Q4H PRN PRN Reason: Pain (Mild 1-3)/fever Last Admin: 02/20/19 16:46 Dose: 650 mg Cyclobenzaprine HCl (Flexeril) 10 mg PO TID PRN PRN Reason: Spasms Docusate Sodium (Colace) 100 mg PO BID PRN PRN Reason: Constipation Enoxaparin Sodium (Lovenox) 30 mg SUBCUT Q24H [facility] Last Admin: 02/20/19 18:28 Dose: 30 mg Fluoxetine HCl (Prozac) 40 mg PO DAILY [facility] Last Admin: 02/20/19 08:00 Dose: 40 mg Ceftriaxone Sodium/Dextrose 2 (gm/ Premix) 50 mls @ 100 mls/hr IV Q24H [facility] Last Admin: 02/20/19 13:43 Dose: 100 mls/hr Loperamide HCl (Imodium) 4 mg PO Q6H PRN PRN Reason: Diarrhea Last Admin: 02/20/19 18:53 Dose: 4 mg Ondansetron HCl (Zofran Odt) 4 mg PO Q6H PRN PRN Reason: nausea, able to take PO Oxycodone HCl (Oxycodone) 5 mg PO Q4H PRN PRN Reason: Pain (moderate 4-6) Last Admin: 02/20/19 21:25 Dose: 5 mg Sodium Chloride (Saline Flush) 10 ml FLUSH ASDIRECTED PRN PRN Reason: Keep Vein Open Sodium Chloride (Saline Flush) 2.5 ml FLUSH ASDIRECTED PRN PRN Reason: Keep Vein Open Sodium Chloride (Normal Saline) 10 ml IV ASDIRECTED PRN PRN Reason: IV Use Temazepam (Restoril) 15 mg PO BEDTIME PRN PRN Reason: Sleep Discontinued Medications Meropenem 2 gm/ Sodium (Chloride) 100 mls @ 100 mls/hr IV Q8H [facility] Last Admin: 02/20/19 10:55 Dose: 100 mls/hr Sodium Chloride (Normal Saline) 1,000 mls @ 100 mls/hr IV ASDIRECTED [facility] Last Admin: 02/18/19 03:40 Dose: 100 mls/hr Potassium Chloride/Dextrose/Sod Cl (D5 1/2 Ns W/ 40 Meq/L Kcl) 1,000 mls @ 100 mls/hr IV ASDIRECTED [facility] Last Admin: 02/19/19 09:13 Dose: 100 mls/hr Sodium Chloride (Normal Saline) 1,000 mls @ 125 mls/hr IV ASDIRECTED [facility] Last Admin: 02/19/19 10:41 Dose: 125 mls/hr - Exam Quality Assessment: Denies: Supplemental Oxygen General: Reports: Alert, Oriented, Cooperative, No Acute Distress HEENT: Reports: Pupils Equal, Pupils Reactive, EOMI, Mucous Membr. Moist/Shaw Neck: Reports: Supple, Trachea Midline Lungs: Reports: Clear to Auscultation, Normal Respiratory Effort Cardiovascular: Reports: Regular Rate, Regular Rhythm GI/Abdominal Exam: Normal Bowel Sounds, Soft, Non-Tender, No Distention (Female) Exam: Deferred Rectal (Female) Exam: Deferred Back Exam: Reports: Normal Inspection, Full Range of Motion Extremities: Normal Inspection, Normal Range of Motion, Non-Tender, No Pedal Edema Skin: Reports: Warm, Dry, Intact Wound/Incisions: Reports: Healing Well Neurological: Reports: No New Focal Deficit Psy/Mental Status: Reports: Alert, Normal Affect, Normal Mood
[2019-02-21] MEDS: Acetaminophen 325 MG Tab PO PRN (10:11)
[2019-02-21] MEDS: Loperamide 2 MG Cap PO PRN (10:11)
[2019-02-21] MEDS: oxyCODONE 5 MG Tab PO PRN (11:37)
[2019-02-21] MEDS: cefTRIAXone 2 GM in Premix Bag 1 BAG IV SCH (11:38)
== END 2019-02-21 13:00 | disposition home or self-care (01) | DRG 194 ==
LOC: MW.MS 16:19
PROVIDERS: ADMIT Internal Medicine; ATTEND Internal Medicine
DX: J15.4 Pneumonia due to other streptococci (principal); R04.2 Hemoptysis; C94.6 Myelodysplastic disease, not elsewhere classified; G43.909 Migraine, unspecified, not intractable, without status migrainosus; F32.9 Major depressive disorder, single episode, unspecified; D47.2 Monoclonal gammopathy; E66.9 Obesity, unspecified; K59.1 Functional diarrhea; Z85.42 Personal history of malignant neoplasm of other parts of uterus; Z90.710 Acquired absence of both cervix and uterus; Z98.84 Bariatric surgery status; Z68.31 Body mass index [BMI] 31.0-31.9, adult
CPT/HCPCS: 36415; 71045; 71045-26; 80048; 80053; 83735; 85025; 87070; 87077; 87186; 87205; 87324; A9270-GY; J0696; J1650; J2185; J3480; J7030; J7040